=== PATIENT | female | born 1975 | race Two or more races ===

== ENCOUNTER 2018-06-10 15:32 | Emergency (ER) | payer SELFPAY ==
[~2018-06-10] VITALS: Ht 152.4 cm; Wt 78.0 kg
[2018-06-10 15:35] VITALS: BP 155/98
== END 2018-06-10 20:18 | disposition left against medical advice (07) ==
LOC: ER 15:32
DX: Z53.21 Procedure and treatment not carried out due to patient leaving prior to being seen by health care provider (principal)